=== PATIENT | female | born 1985 | race Caucasian/White ===

== ENCOUNTER 2020-07-10 14:56 | Emergency (ER) | payer OTHER, SELFPAY ==
[2020-07-10 15:07] VITALS: BP 135/84; PULSE 109; RESP 20; TEMP 36.5; O2SAT 98
--- NOTE | 2020-07-10 15:20 | ED.GENADUL_ITS ---
Discharge Plan Disposition Patient Disposition: HOME Condition: Improving Discharge Details Clinical Impression: Seroma after procedure, Status post hysterectomy Primary Care Provider: Unknown,Unknown ED Provider: Aria Harris Home Meds and New Rx's Prescriptions: Continued levothyroxine 50 mcg Tablet 50 mcg PO DAILY RF: 0 Discharge Instructions Instructions: Abdominal Pain (ED), Seroma (DC) Additional Instructions: Drink plenty of fluids and get plenty of rest. Alternate tylenol and motrin as needed and directed for pain. Call your primary care doctor and general surgeon on Sunday for follow-up when she returns to [place]. Return immediately to the emergency department if you develop any worsening or new concerning symptoms such as fever, persistent vomiting or worsening abdominal pain. Discharge Data Discharge Date/Time-TO BE ENTERED AT DEPARTURE: 07/10/20 19:24 Discharge Physician: Aria Harris Medical Decision Making 34-year-old female who is just over 5 weeks status post hysterectomy d/t cervical cancer presents for right-sided abdominal pain for the last few weeks but worse over the past few days. Patient traveled here from around 2 days ago. She denies any respiratory symptoms, fever, vomiting or diarrhea. Vitals within normal limits on my assessment. She is afebrile and appears nontoxic and is texting on her phone in no acute distress. She has minimal right lower quadrant tenderness but no CVA tenderness. Differential diagnosis includes abdominal abscess, small bowel obstruction, UTI, pyelonephritis, kidney stone, appendicitis, cholelithiasis, cholecystitis. Will place an IV, bolus of fluids, screening labs, urinalysis, CT abdomen and pelvis. Patient is declining any medication for pain or nausea at this time. Labs and imaging reviewed. Normal white blood cell count. Normal electrolytes. Urinalysis shows 0-2 WBCs with trace leukocyte esterase and negative nitrates and bacteria. Urine culture sent. CT notes IMPRESSION: 1. Status post hysterectomy and right oophorectomy. 2. Small to moderate amount of free fluid in the pelvis. 3. Probable resolving hematoma or seroma in the right hemipelvis with some surrounding inflammatory change. Clinical correlation is necessary as to the presence or absence of superimposed infection. CT results discussed with Dr. Montero. Patient has a normal white blood cell count, is afebrile, with minimal pain and appears nontoxic. Suspect this is most likely a resolving hematoma or seroma rather than abscess. Results discussed with patient and she is agreeable with this. Patient states she feels good at this time and feels good to go home. She had contacted on her phone and in no acute distress. Patient given an imaging disc and report to take home to [place]. Advised to follow up with the primary care doctor and oncologist in [place] for re- evaluation. Usual and customary return precautions given prior to discharge. Medical Records Medical records reviewed: Yes I reviewed the patient's medical records. Imaging Data Radiologic Study: Radiologist's impression: CT Abdomen And Pelvis With Contrast Exam date and time: 07/10/2020 3:48 PM Age: 34 years old Clinical indication: Abdominal pain; Localized; Right lower quadrant (rlq); Prior surgery; Surgery date: 1-6 months; Surgery type: Hysterectomy jun 02 2020. Cervical cancer. ; Patient HX: Cervical cancer 6 weeks ago. Pain since Sunday. ; Additional info: No prior exam here at [facility] previous exams done in mo. TECHNIQUE: Imaging protocol: Computed tomography of the abdomen and pelvis with contrast. Radiation optimization: All CT scans at this facility use at least one of these dose optimization techniques: automated exposure control; mA and/or kV adjustment per patient size (includes targeted exams where dose is matched to clinical indication); or iterative reconstruction. Contrast material: OMNIPAQUE 350; Contrast volume: 100 ml; Contrast route: INTRAVENOUS (IV); COMPARISON: No relevant prior studies available. FINDINGS: Lungs: The visualized lung caldwell show mild bibasilar atelectasis. Liver: No hepatomegaly. There are no enhancing liver masses. Gallbladder and bile ducts: No calcified stones. No ductal dilation. Pancreas: Normal in size and homogeneous enhancement. No ductal dilation. Spleen: Normal. No splenomegaly. Adrenal glands: Normal. No mass. Kidneys and ureters: There is no hydronephrosis. No renal or obstructing ureteral calculi. Stomach and bowel: There is no evidence of small bowel or colonic obstruction. Appendix: No evidence of appendicitis. Intraperitoneal space: There is a small to moderate amount of free fluid in the pelvis . Vasculature: There is no abdominal aortic aneurysm. Lymph nodes: No enlarged retroperitoneal or mesenteric lymph nodes. Urinary bladder: The bladder shows a normal contour and is free of calcific opacities. Reproductive: There has been a hysterectomy and right oophorectomy. In the right hemipelvis, area of the right adnexa adjacent to surgical clips and there is a rim enhancing lesion that may represent hematoma or abscess, with density measurements of 31 Hounsfield units. There is adjacent inflamed bowel and sigmoid colon with thickened, enhancing castaneda. Bones/joints: No acute fracture. Soft tissues: There is stranding in the anterior pelvic wall, likely secondary to a healed surgical incision. IMPRESSION: 1. Status post hysterectomy and right oophorectomy. 2. Small to moderate amount of free fluid in the pelvis. 3. Probable resolving hematoma or seroma in the right hemipelvis with some surrounding inflammatory change. Clinical correlation is necessary as to the presence or absence of superimposed infection. Lab Data Lab results reviewed: Yes I reviewed the patient's lab results. Labs: 07/10/20 15:20 Urine - Reflex from Ua Urine Culture - Final Gram Positive Citlaly,Mixed Laboratory Tests Range/Units 07/10/20 07/10/20 07/10/20 15:20 16:05 16:05 WBC (4.4-10.8) 10^3/uL 8.12 RBC (3.93-5.22) 10^6/uL 4.38 Hgb (11.2-15.7) g/dL 13.4 Hct (36.0-46.0) % 41.2 MCV (80-95) fL 94.1 MCH (27.0-33.0) pg 30.6 MCHC (32.0-36.0) % 32.5 RDW (11.7-14.6) % 12.6 Plt Count (130-400) 10^3/uL 301 MPV (8.0-11.0) fL 9.2 Immature Gran % 0.2 Neutrophils % 62.8 Lymphocytes % 28.0 Monocytes % 6.0 Eosinophils % 2.5 Basophils % 0.5 Nucleated RBC % % 0 Absolute Neutrophils (1.2-6.7) 10^3/uL 5.10 Absolute Lymphocytes (1.2-3.4) 10^3/uL 2.27 Absolute Monocytes (0.1-0.8) 10^3/uL 0.49 Absolute Eosinophils (0.0-0.7) 10^3/uL 0.20 Absolute Basophils (0.0-0.2) 10^3/uL 0.04 Sodium (136-145) mmol/L 140 Potassium (3.5-5.1) mmol/L 4.0 Chloride (98-107) mmol/L 105 Carbon Dioxide (21.0-32.0) mmol/L 26.2 Anion Gap (3-11) mmol/L 8.8 BUN (7-18) mg/dL 7 Creatinine (0.55-1.02) mg/dL 0.7 Estimated GFR/1.73 m2 (mL/min/1.73m2) >= 60.00 Glucose (74-106) mg/dL 87 Calcium (8.5-10.1) mg/dL 8.8 Total Bilirubin (0.2-1.0) mg/dL 0.4 AST (15-37) U/L 17 ALT (14-59) U/L 38 Alkaline Phosphatase (46-116) U/L 81 Total Protein (6.4-8.2) g/dL 7.6 Albumin (3.4-5.0) g/dL 3.6 Lipase (73-393) U/L 80 Urine Color (Yellow) Yellow Urine Clarity (Clear) Clear Urine pH (5-8) 7.0 Ur Specific Stokes (1.005-1.025) 1.015 Urine Protein (Negative) mg/dL Negative Urine Ketones (Negative) mg/dL Negative Urine Blood (Negative) Negative Urine Nitrite (Negative) Negative Urine Bilirubin (Negative) Negative Urine Urobilinogen (Up TO 0.2) EU/dL 0.2 Ur Leukocyte Esterase (Negative) Trace H Urine RBC (0-2) HPF Negative Urine WBC (0-5) HPF 0-2 Ur Epithelial Cells (Negative) HPF Few Urine Crystals (Negative) HPF Negative Urine Bacteria (Negative) HPF Negative Urine Casts (Negative) LPF Negative Urine Mucus (Negative) Negative Urine Other (Negative) Negative Ur Culture Indicated? Yes Urine Glucose (Negative) mg/dL Negative HPI General Mode of arrival: ambulatory . Date/Time Provider Initiated Documentation: 07/10/20 15:04 . Limitations to Documentation: no limitations . Information obtained by: patient . HPI Narrative: Patient is a 34-year-old female with a history of hypothyroidism and cervical cancer who was more than 5 weeks status post hysterectomy in [place] presents for abdominal pain for the past few weeks, worse over the past few days. Patient states she traveled here from [place] 2 days ago. She describes the pain as intermittent and aching down the right side of her abdomen which started in the right lower quadrant few days ago and then progressed to her right upper quadrant and right flank. She states she has had some intermittent abdominal pain since her surgery but thinks it has been worse over the past 2 days. She also states she feels that she has had trouble fully emptying her bladder and when she urinates what appears to be a large amount, she then returns again shortly after 2 urinate again a large amount. She states she was discussed her symptoms with her surgeon in [place] and was advised to increase with normal postoperative pain and symptoms. Patient states she took ibuprofen today for the pain with relief. She denies any fever, nausea, vomiting, diarrhea, dysuria, hematuria, recent antibiotic or recent known sick contacts. Related Data Home Medications Medication Instructions Recorded Confirmed levothyroxine 50 mcg PO DAILY 07/10/20 07/10/20 Allergies Allergy/AdvReac Type Severity Reaction Status Date / Time tree nut Allergy Swelling/Ed Unverified 07/10/20 15:10 alannah General Stated Complaint: Abd Prob LINDA: 3 Review of Systems All systems reviewed & are unremarkable except as noted in HPI and below Constitutional Constitutional: Reports as per HPI, Denies chills and Denies fever(s) Eyes Eyes: Denies blurry vision ENT Ears, Nose, Mouth, and Throat: Denies dizziness, Denies sore throat and Denies throat swelling Cardiovascular Cardiovascular: Denies chest pain and Denies dyspnea Respiratory Respiratory: Denies cough and Denies dyspnea Gastrointestinal Gastrointestinal: Reports abdominal pain, Denies diarrhea and Denies vomiting Genitourinary Genitourinary: Denies hematuria and Denies dysuria Musculoskeletal Musculoskeletal: Denies back pain and Denies numbness Integumentary/Breasts Skin/Breast: Denies lesions and Denies rash Neurologic Neurologic: Denies dizziness, Denies localized weakness and Denies numbness Allergic/Immunologic Allergic/Immunologic: Denies throat swelling [facility] Medical History (Updated 07/10/20 @ 19:13 by Aria Harris DO) Cervical cancer Hypothyroid Surgical History (Updated 07/10/20 @ 19:13 by Aria Harris DO) H/O: hysterectomy Social History Smoking/Tobacco Use Status: Current every day Tobacco Type: cigarettes Smoking risk assessment performed?: Yes Alcohol Intake: never Substance use type: does not use Do you feel safe at home: Yes Do you feel safe in your relationship?: Yes Exam Const General: cooperative, healthy appearing and no acute distress HENMT Head: normal to inspection Face and sinus: normal facial exam Eyes General: appearance normal, both eyes and all related structures EOM: EOM intact bilaterally Neck Neck: normal visual inspection and No submandibular swelling Lymphatic: no lymphadenopathy noted Chest Chest: normal inspection of the chest and no tenderness Resp Effort & Inspection: normal respiratory effort and able to speak in complete sentences Auscultation: clear to auscultation bilaterally Cardio Rate: regular rate Rhythm: regular rhythm GI Inspection: normal to inspection Palpation: soft, not firm, not rigid and tender in the RLQ and in the RUQ Auscultation: normal bowel sounds Back/Spine/Pelvis Back: no CVA tenderness Thoracic/Lumbar Spine: thoracic and lumbar spine normal to inspection Pelvis: no pain with anterior-posterior compression Skin General skin exam: no rashes or lesions noted Neuro General: patient alert, patient awake and patient oriented x3 Cognition: normal cognition Speech: speech normal Motor: muscle tone normal throughout Sensory Exam: no sensory deficits noted Extrem General: normal to inspection, full ROM, capillary refill normal, no calf tenderness bilaterally and no edema Psych Appearance: grossly normal Mental Status: mental status grossly normal Speech and Movement: speech and movement normal Affect: normal affect Course Vital Signs Vital signs: Vital Signs Temperature 97.7 F 07/10/20 15:07 Pulse 109 H 07/10/20 15:07 Respiratory Rate 20 07/10/20 15:07 Blood Pressure 135/84 07/10/20 15:07 Pulse Oximetry 98 07/10/20 15:07 Temperature 97.7 F 07/10/20 15:07 Temperature Source Skin 07/10/20 15:07 Pulse 109 H 07/10/20 15:07 Respiratory Rate 20 07/10/20 15:07 Respiratory Effort Non-Labored 07/10/20 15:11 Blood Pressure 135/84 07/10/20 15:07 Pulse Oximetry 98 07/10/20 15:07 Oxygen Delivery Method Room Air 07/10/20 15:07 Oxygen Flow Rate 0 07/10/20 15:07 Pain Level 4 07/10/20 15:07
[2020-07-10 15:49] LABS: Bilirubin Negative (Negative); Blood Negative (Negative); Clarity Clear (Clear); Glucose Negative (Negative); Ketones Negative (Negative); Leukocyte Esterase Trace (Negative); Nitrite Negative (Negative); Specific Gravity 1.015 (1.005-1.025); Urobilinogen 0.2 EU/dL (Up TO 0.2)
[2020-07-10 15:59] LABS: Bacteria Negative HPF (Negative); C & S Indicated? Yes; Casts Negative LPF (Negative); Crystals Negative HPF (Negative); Epithelial Cells Few HPF (Negative); Mucus Negative (Negative); Other Cells Negative (Negative); RBC Negative HPF (0-2); WBC 0-2 HPF (0-5)
[2020-07-10] MEDS: Normal Saline Flush 10 ML SYR IVP (16:05)
[2020-07-10] MEDS: Normal Saline 1,000 ML 1000 ML IV (16:05)
[2020-07-10 16:11] LABS: Abs Immature Grans 0.02 10^3/uL (0.0-0.06); Absolute Basophil Count 0.04 10^3/uL (0.0-0.2); Absolute Lymphocyte Count 2.27 10^3/uL (1.2-3.4); Absolute Monocyte Count 0.49 10^3/uL (0.1-0.8); Basophils % 0.5; Eosinophils % 2.5; HCT 41.2 % (36.0-46.0); HGB 13.4 g/dL (11.2-15.7); Immature Grans % 0.2; MCH 30.6 pg (27.0-33.0); MCHC 32.5 % (32.0-36.0); MCV 94.1 fL (80-95); MPV 9.2 fL (8.0-11.0); Neutrophils % 62.8; Nucleated RBC 0 %; Platelet Count 301 10^3/uL (130-400); RBC 4.38 10^6/uL (3.93-5.22); RDW 12.6 % (11.7-14.6); WBC 8.12 10^3/uL (4.4-10.8)
[2020-07-10 16:31] LABS: ALT 38 U/L (14-59); AST 17 U/L (15-37); Albumin 3.6 g/dL (3.4-5.0); Alkaline Phosphatase 81 U/L (46-116); Anion Gap 8.8 mmol/L (3-11); BUN 7 mg/dL (7-18); Bilirubin, Total 0.4 mg/dL (0.2-1.0); CO2 26.2 mmol/L (21.0-32.0); CREATININE 0.7 mg/dL (0.55-1.02); Calcium 8.8 mg/dL (8.5-10.1); Chloride 105 mmol/L (98-107); Glucose 87 mg/dL (74-106); Lipase 80 U/L (73-393); Sodium 140 mmol/L (136-145); Total Protein 7.6 g/dL (6.4-8.2)
--- NOTE | 2020-07-10 16:52 | DI.CT_ITS ---
EXAM: CT ABDOMEN PELVIS W INDICATION: RUQ/RLQ abd pain. COMPARISON: No exams were available for comparison TECHNIQUE: FINDINGS: CT examination of the abdomen and pelvis was performed with a bolus infusion of 100 cc of Omnipaque 3 50. Images obtained through the lung bases are unremarkable. The liver is unremarkable in appearance. Gallbladder and bile ducts are CT normal. Pancreas appears normal. Spleen is unremarkable in appearance. Adrenals appear normal. The kidneys are unremarkable with no evidence of hydronephrosis, nephrolithiasis, or renal mass.. No evidence of obstruction of the ureters. Abdominal aorta is of normal diameter and no major vascular abnormality is seen. No abdominal wall hernia. No abdominal or pelvic adenopathy. Patient has reportedly had recent hysterectomy and oophorectomy for cervical carcinoma. There is mod erate free pelvic fluid. There are surgical clips in the right pelvis. There is a rim enhancing flu id collection measuring about 4 cm in greatest diameter, possibly loculated, which may represent barry shelly, seroma, or abscess, please correlate clinically. By history there has been a right oophorectom y, left ovary not identified with certainty. There is apparent mild reactive bowel wall edema of the sigmoid colon. Urinary bladder appears intact. IMPRESSION: Free pelvic fluid and localized probably loculated right hemipelvic fluid collection in a patient wit h history of recent hysterectomy and oophorectomy. Hematoma, seroma, versus abscess. Clinical corre lation recommended. RADIATION DOSE DELIVERED: 1,076.97mGy.cm Total DLP 1,076.97mGy.cm Total DLP
[2020-07-10] MEDS: Omnipaque 350 MG/ML 100 ML BTL IJ (16:53)
[2020-07-10] MEDS: Normal Saline - Diluent 50 ML VIAL IV (16:54)
[2020-07-10 18:08] VITALS: BP 122/83; PULSE 75; O2SAT 98
--- NOTE | 2020-07-10 18:15 | DI.VRAD_ITS ---
PROCEDURE INFORMATION: Exam: CT Abdomen And Pelvis With Contrast Exam date and time: 07/10/2020 3:48 PM Age: 34 years old Clinical indication: Abdominal pain; Localized; Right lower quadrant (rlq); Prior surgery; Surgery date: 1-6 months; Surgery type: Hysterectomy jun 02 2020. Cervical cancer. ; Patient HX: Cervical cancer 6 weeks ago. Pain since Sunday. ; Additional info: No prior exam here at [facility] previous exams done in [place]. TECHNIQUE: Imaging protocol: Computed tomography of the abdomen and pelvis with contrast. Radiation optimization: All CT scans at this facility use at least one of these dose optimization techniques: automated exposure control; mA and/or kV adjustment per patient size (includes targeted exams where dose is matched to clinical indication); or iterative reconstruction. Contrast material: OMNIPAQUE 350; Contrast volume: 100 ml; Contrast route: INTRAVENOUS (IV); COMPARISON: No relevant prior studies available. FINDINGS: Lungs: The visualized lung caldwell show mild bibasilar atelectasis. Liver: No hepatomegaly. There are no enhancing liver masses. Gallbladder and bile ducts: No calcified stones. No ductal dilation. Pancreas: Normal in size and homogeneous enhancement. No ductal dilation. Spleen: Normal. No splenomegaly. Adrenal glands: Normal. No mass. Kidneys and ureters: There is no hydronephrosis. No renal or obstructing ureteral calculi. Stomach and bowel: There is no evidence of small bowel or colonic obstruction. Appendix: No evidence of appendicitis. Intraperitoneal space: There is a small to moderate amount of free fluid in the pelvis . Vasculature: There is no abdominal aortic aneurysm. Lymph nodes: No enlarged retroperitoneal or mesenteric lymph nodes. Urinary bladder: The bladder shows a normal contour and is free of calcific opacities. Reproductive: There has been a hysterectomy and right oophorectomy. In the right hemipelvis, area of the right adnexa adjacent to surgical clips and there is a rim enhancing lesion that may represent hematoma or abscess, with density measurements of 31 Hounsfield units. There is adjacent inflamed bowel and sigmoid colon with thickened, enhancing castaneda. Bones/joints: No acute fracture. Soft tissues: There is stranding in the anterior pelvic wall, likely secondary to a healed surgical incision. IMPRESSION: 1. Status post hysterectomy and right oophorectomy. 2. Small to moderate amount of free fluid in the pelvis. 3. Probable resolving hematoma or seroma in the right hemipelvis with some surrounding inflammatory change. Clinical correlation is necessary as to the presence or absence of superimposed infection. THIS REPORT CONTAINS FINDINGS THAT MAY BE CRITICAL TO PATIENT CARE. The findings were verbally communicated via telephone conference with Aria Harris at 6:10 PM EST on 07/10/2020. The findings were acknowledged and understood. Dictated and Authenticated by: Tim Ritchie MD. Ordering:CASSIUS Knapp MD
[2020-07-10 19:15] VITALS: BP 125/83; PULSE 70; RESP 14; TEMP 36.8; O2SAT 100
[2020-07-10 19:26] VITALS: BP 125/83; PULSE 70; RESP 14; TEMP 36.8; O2SAT 100
== END 2020-07-10 19:24 | disposition home or self-care (01) ==
PROVIDERS: Emergency Provider Physician Assistant
DX: N99.842 Postprocedural seroma of a genitourinary system organ or structure following a genitourinary system procedure (principal); Z90.710 Acquired absence of both cervix and uterus
CPT/HCPCS: 36415; 80053; 83690; 96360; 99285; 74177; 81003; 81015; 85025; 87086; J3490